=== PATIENT | male | born 1980 | race Caucasian/White ===

== ENCOUNTER 2024-09-04 13:21 | Emergency (ER) | payer MEDICAID ==
[~2024-09-04] VITALS: Ht 165.1 cm; Wt 59.0 kg
[2024-09-04 13:22] VITALS: O2SAT 98
[2024-09-04 14:25] LABS: HEMATOCRIT. 44.9 % (42.0-52.0); HEMOGLOBIN. 14.9 g/dL (14.0-18.0); MEAN CORPUSCULAR HEMOGLOBIN 28.2 pg (28.0-32.0); MEAN CORPUSCULAR HGB CONC 33.3 g/dL (31.0-37.0); MEAN CORPUSCULAR VOLUME 84.7 fL (80.0-94.0); MEAN PLATELET VOLUME 8.1 fl (7.4-10.4); PLATELET 446 x1000/uL (130-400); RED BLOOD CELL COUNT 5.29 mill/uL (4.7-6.1); RED CELL DISTRIBUTION WIDTH 13.9 % (11.6-14.6); WHITE BLOOD COUNT 12.9 x1000/uL (4.5-11.0)
[2024-09-04 14:28] LABS: DIFFERENTIAL COMMENT 1
[2024-09-04 14:39] LABS: CHLORIDE 99 mEq/L (98-107); POTASSIUM 3.1 mEq/L (3.5-5.1); SODIUM 134 mEq/L (136-145)
[2024-09-04 14:40] LABS: CARBON DIOXIDE 23 mEq/L (21-32)
[2024-09-04 14:45] LABS: GLUCOSE 215 mg/dL (70-105); UREA NITROGEN BLOOD 12 mg/dL (9-23)
[2024-09-04 14:55] LABS: PLATELET ESTIMATE INCREAS
[2024-09-04] MEDS: POTASSIUM CHLORIDE 20MEQ/PACKET PO ONE (15:08)
[2024-09-04 15:35] LABS: ETHANOL BLOOD < 10 mg/dL (<10)
[2024-09-04 15:37] LABS: ACETAMINOPHEN < 2 ug/mL (10-30)
[2024-09-04] MEDS ORDERED: AMLODIPINE 10MG TABLET PO NR (16:45)
[2024-09-04] MEDS: AMLODIPINE 5MG TABLET PO NR (17:10)
[2024-09-04 21:49] LABS: CLARITY URINE CLEAR (CLEAR); COLOR URINE YELLOW (YELLOW); GLUCOSE URINE NEGATIVE (NEGATIVE); KETONES URINE TRACE (NEGATIVE); LEUKOCYTE ESTERASE URINE NEGATIVE (NEGATIVE); NITRITE URINE NEGATIVE (NEGATIVE); OCCULT BLOOD URINE NEGATIVE (NEGATIVE); PROTEIN URINE NEGATIVE (NEGATIVE); SPECIFIC GRAVITY URINE 1.015 (1.005-1.030)
[2024-09-04 22:03] LABS: *AMPHETAMINES SCREEN URINE PRESUMPTIVE POSITIVE (NEGATIVE); *BARBITURATES SCREEN URINE NEGATIVE (NEGATIVE); *BENZODIAZEPINES SCREEN URINE NEGATIVE (NEGATIVE); *COCAINE SCREEN URINE NEGATIVE (NEGATIVE); CANNABINOID URINE SCREEN NEGATIVE (NEGATIVE); ECSTASY MDMA SCREEN URINE CONF.TEST INDICATED (NEGATIVE); METHADONE URINE SCREEN NEGATIVE (NEGATIVE); OPIATES URINE SCREEN NEGATIVE (NEGATIVE); PHENCYCLIDINE URINE SCREEN NEGATIVE (NEGATIVE)
[2024-09-05] MEDS: ACETAMINOPHEN 325MG TABLET PO ONE (08:18)
[2024-09-05 09:37] VITALS: BP 127/74; PULSE 81; RESP 16; TEMP 37; O2SAT 98
== END 2024-09-05 10:05 | disposition home or self-care (01) ==
LOC: ER 13:21 → EDBD 13:21 → ER 09-05 10:05
DX: F15.10 Other stimulant abuse, uncomplicated (principal); Z20.822 Contact with and (suspected) exposure to COVID-19
CPT/HCPCS: 80305; 80048; 81003; 80307; 80329; 80320; 85025; 36415; 71045; 93005; 99285; 87426; Z7610 ×3; A4606; G0480